=== PATIENT | male | born 1960 | race Native Hawaiian/Other Pacific Islander ===

== ENCOUNTER 2016-07-24 13:36 | Inpatient (IN) | payer SELFPAY ==
[~2016-07-24] VITALS: Ht 182.9 cm; Wt 165.9 kg
--- NOTE | ~2016-07-24 | EKG ---
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 : 1960 Requested By: Mike Garcia Order Number: [id number] MD: Jabari Arroyo Measurements Intervals [place] Rate: 80 P: [place]: QRS: 17 QRSD: 72 T: -9 QT: 399 QTc: 461 Interpretive Statements Atrial fibrillation RSR' in V1 or V2, probably normal variant Probable left ventricular hypertrophy Borderline T abnormalities, inferior leads No previous ECG available for comparison Electronically Signed On 07-24-2016 15:51:43 CLAY ARTIST by Jabari Arroyo [email or web address] <ELECTRONICALLY SIGNED> By: Jabari Arroyo MD 07/24/16 1551 142 142 Jabari Arroyo MD /JAMES
--- NOTE | ~2016-07-24 | 2DMMODE ---
[facility] [place] [address] 2 D/M-MODE ECHOCARDIOGRAM Name: CAMILLE TRACY MELQUIADES Room #: 214-P [facility] IN ..#: [id number] Admission: 07/24/16 Attend Phys: Lance Howard, Discharge: Date of : 62 Date of Service: 07/24/16 1458 Report #: [id number] THIS REPORT FOR: //name// Transthoracic Echocardiography Ordering physician: Lance Howard Referring physician: Lance Howard Recyclable Materials Collector: KADE Russell Indications/History: Atrial fibrillation with rapid ventricular response, Morbid obesity. BP: 127 / HR: Height: 72in Weight: 359.2lb 73 Study data: M-mode, complete 2D, complete spectral Doppler, and color Doppler. Location: Emergency department. Routine. Image quality was adequate. The study was technically limited due to poor acoustic window availability and body habitus. Intravenous contrast (Definity) was administered. 2D measurements Normal Normal LVID ED 41.6mm 36-57 IVS ED 15.8mm 6-11 LVID ES 35.2mm 23-40 LVPW ED 16mm 6-11 LA volume index 16-28 AoRoot diam ED 36mm 21-37 LVOT diameter 18-23 Findings: Left ventricle: The cavity size was normal. Wall thickness was increased in a pattern of moderate LVH. Systolic function was mildly reduced. The estimated ejection fraction was in the range of 45% to 50%. Mild diffuse hypokinesis. Right ventricle: The cavity size was normal. Systolic function was normal. Right atrium: The atrium was normal in size. Left atrium: The atrium was normal in size. Aortic valve: Trileaflet; mildly calcified leaflets. Doppler: There was no stenosis. No regurgitation. [facility] [address] [place] [address] 2 D/M-MODE ECHOCARDIOGRAM Name: CAMILLE TRACY Room #: 214-P ADM IN M.R.#: [id number] Admission: 07/24/16 Attend Phys: Lance Howard, Discharge: Date of : 62 Date of Service: 07/24/16 1458 Report #: [id number] Mitral valve: Structurally normal valve. Doppler: There was no evidence for stenosis. No regurgitation. Tricuspid valve: Structurally normal valve. Doppler: There was no evidence for stenosis. No regurgitation. Pulmonic valve: Structurally normal valve. Doppler: There was no evidence for stenosis. No regurgitation. Pericardium: There was no pericardial effusion. Aorta: Aortic root: The aortic root was normal in size. Pulmonary artery: Pressure could not be reliably determined due to minimal or absent tricuspid insufficiency jet, but pulmonary hypertension was not suggested. Diastolic function: The study was not technically sufficient to allow evaluation of LV diastolic dysfunction due to atrial fibrillation. Systemic veins: Inferior vena cava: Not visualized. Conclusions 1. Left ventricle: The cavity size was normal. Wall thickness was increased in a pattern of moderate LVH. Systolic function was mildly reduced. The estimated ejection fraction was in the range of 45% to 50%. Mild diffuse hypokinesis. 2. Aortic valve: Trileaflet; mildly calcified leaflets. 3. Mitral valve: Structurally normal valve. 4. Pulmonic valve: Structurally normal valve. 5. Tricuspid valve: Structurally normal valve. 6. Pulmonary arteries: Pressure could not be reliably determined due to minimal or absent tricuspid insufficiency jet, but pulmonary hypertension was not suggested. <ELECTRONICALLY SIGNED> By: Jay Sylvester MD 07/24/16 1651 1458 1651 Jay Sylvester MD /kemar
--- NOTE | ~2016-07-24 | EKG ---
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
--- NOTE | ~2016-07-24 | EKG ---
[address] [place] [address] ELECTROCARDIOGRAM REPORT Name: DEMARCUSCAMILLE Room #: 214-P DIS IN M.R.#: [id number] Admission: 07/24/16 Attend Phys: Lance Howard MD Discharge: 07/26/16 Date of : 62 Report #: [id number] THIS REPORT FOR: //name// [facility] Test Date: 2016-07-26 Test Time: 07:05:49 Pat Name: CAMILLE TRACY Department: Room: 214 P Gender: M Assistant Case Manager: SCOT : 1960 Requested By: Opal Morales Order Number: [id number] MD: Oni Hopkins Measurements Intervals [place] Rate: 59 P: [place]: QRS: 29 QRSD: 77 T: 100 QT: 433 QTc: 429 Interpretive Statements Atrial fibrillation RSR' in V1 or V2, probably normal variant Nonspecific T abnormalities, lateral leads Compared to ECG 07/24/2016 14:21:57 No significant changes Electronically Signed On 07-27-2016 14:13:39 INCIDENT HANDLER by Oni Hopkins [email or web address] <ELECTRONICALLY SIGNED> By: Oni Hopkisn MD, [facility] 07/27/16 1413 07 07 Oni Hopkins MD, [facility] /EPI
--- NOTE | ~2016-07-24 | H ---
[facility] [place] [address] HISTORY AND PHYSICAL Name: CAMILLE TRACY Room #: 214-P [facility] IN M.R.#: [id number] Admission: 07/24/16 Attend Phys: Lance Howard MD Discharge: 07/26/16 Date of : 62 Report #: [id number] THIS REPORT FOR: //name// CC: Lance Howard DATE OF SERVICE: 07/24/2016 CHIEF COMPLAINT: Rapid heartbeat and chest pain. HISTORY OF PRESENT ILLNESS: The patient is a 55-year-old male presented to the Emergency Department with an onset of left-sided chest pain and rapid heartbeat about 2 hours prior to admission. He denies any vomiting or diarrhea, just this sharp pain. He felt a big thump when it started. He has had PSVT in the past. He seems for that. He is on Coreg, clonidine. The morning he walked . 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 PAST MEDICAL HISTORY: Significant for: 1. PSVT. 2. Sleep apnea. 3. Hypothyroidism. 4. Hypertension. 5. Depression. 6. Crohn's colitis. He has had diverticulitis in the past. PAST SURGICAL HISTORY: He had a cholecystectomy in the past. MEDICATIONS: Include Cipro and Flagyl recently, senna b.i.d., hydrocodone p.r.n. pain, aspirin 325 a day, Synthroid 50 mcg a day, Coreg 25 mg b.i.d., citalopram 20 mg a day, clonidine 0.1 mg b.i.d. ALLERGIES: No known drug allergies. SOCIAL HISTORY: He is a nonsmoker, nondrinker, no recreational drugs. 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 REVIEW OF SYSTEMS: CONSTITUTIONAL: No fever or chills. HEENT: No headaches or visual changes. CHEST: Per above. GASTROINTESTINAL: No nausea, vomiting, diarrhea or constipation. GENITOURINARY: No complaints. EXTREMITIES: No complaints. PHYSICAL EXAMINATION: VITAL SIGNS: Blood pressure 157/105; pulse was 134, it is down to 85 now; [facility] [address] [place] [address] HISTORY AND PHYSICAL Name: CAMILLE TRACY MELQUIADES Room #: 214-P [facility] IN [facility]#: [id number] Admission: 07/24/16 Attend Phys: Lance Howard MD Discharge: 07/26/16 Date of : 62 Report #: [id number] respiratory rate was 20. His O2 sats were 98%. He was afebrile. GENERAL: The patient is awake and alert, in no acute distress. HEENT: Mucous membranes are moist. NECK: Supple. No adenopathy, thyromegaly or bruits. CHEST: Clear to auscultation bilaterally. CARDIOVASCULAR: Currently irregular with rate in the 80s. ABDOMEN: Soft, no masses. Bowel sounds are active. EXTREMITIES: No edema. Pulses are intact. LABORATORY DATA: EKG showed AFib with RVR, rate of 141. Sodium 144, potassium 4.1, chloride 107, bicarb 25, BUN 14, creatinine 0.9, glucose 102, mag is 1.8, AST 37, ALT 40, alkaline phosphatase 63. Troponin 0.3. BNP 260, TSH is pending. INR is pending. WBC 7.9, hemoglobin 17.9, hematocrit 53.3, platelet count 209, 53 segs, 21 lymphs. Chest x-ray shows cardiomegaly with no heart failure. ASSESSMENT: Atrial fibrillation with rapid ventricular response with a slight bump in troponin, most likely due to strain. He was started on a Cardizem drip. We will continue that. We will continue the Coreg. Consult Cardiology. He will need an echocardiogram, start on Xarelto 20 mg a day. <ELECTRONICALLY SIGNED> By: Lance Howard MD 07/28/16 1632 1441 1550 Lance Howard MD /nt
[~2016-07-24 13:36] MED LIST: ASPIRIN325 PO; CARVEDILOL25 MG PO; CELEXA20 MG PO; CIPRO500 M1 PO; CLONIDINE0.1 PO; FLAGYL500 MG PO; HYDROCODONE-AP1 EAC6 PO; KEFLEX500 MG PO; LEVOTHYROXINE0.05 MG PO; PEPCID40 MG PO; SENOKOT-S1 TA1 PO
[2016-07-24 13:39] VITALS: BP 157/105
[2016-07-24 14:04] LABS: BASOPHILS 0.9 % (0.0-2.0); EOSINOPHILS 2.7 % (0.0-3.0); HEMATOCRIT 52.3 % (42.0-52.0); HEMOGLOBIN 17.9 gm/dL (14.0-18.0); LYMPHOCYTES 21.3 % (24.0-44.0); MCH 30.5 pg (26.0-34.0); MCHC 34.3 % (28.0-37.0); MONOCYTES 11.2 % (1.0-8.0); PLATELET COUNT 209 thou/uL (150-400); POLYS 63.9 % (36.0-66.0); RBC 5.87 mil/uL (4.50-6.00); RDW 13.6 % (10.5-14.5); WBC 7.9 thou/uL (4.0-11.0)
[2016-07-24 14:07] LABS: MANUAL DIFF NO
[2016-07-24 14:14] LABS: CALCIUM 8.7 mg/dL (8.5-10.1); CREATININE 0.9 mg/dL (0.6-1.3); POTASSIUM 4.1 mmol/L (3.5-5.1)
[2016-07-24 14:29] LABS: ALBUMIN 3.7 g/dL (3.4-5.0); MAGNESIUM 1.8 mg/dL (1.8-2.4); TOTAL BILIRUBIN 1.4 mg/dL (<0.1-1.0); TOTAL PROTEIN 7.7 g/dL (6.4-8.2); TROPONIN-I 0.3 ng/mL (<0.04-0.07)
[2016-07-24 14:36] LABS: INR 1.2
[2016-07-24 15:57] VITALS: BP 147/88
[2016-07-24 19:48] VITALS: BP 134/85
[2016-07-25] VITALS (7 sets, daily range): BP systolic 119–141; BP diastolic 75–96
[2016-07-25] MEDS ORDERED: XARELTO20 MG PO (16:34)
[2016-07-26 04:49] VITALS: BP 151/90
[2016-07-26 08:16] VITALS: BP 158/99
[2016-07-26 08:48] LABS: ALBUMIN 3.6 g/dL (3.4-5.0); ALKALINE PHOSPHATASE 58 U/L (46-116); ANION GAP 15 mmol/L (7-16); BUN 18 mg/dL (7-18); CALCIUM 8.8 mg/dL (8.5-10.1); CHLORIDE 109 mmol/L (98-107); CO2 22 mmol/L (21-32); GLUCOSE 116 mg/dL (70-99); SGOT 44 U/L (15-37); SGPT 55 U/L (30-65); SODIUM 146 mmol/L (136-145); TOTAL BILIRUBIN 1.3 mg/dL (<0.1-1.0); TOTAL PROTEIN 7.2 g/dL (6.4-8.2)
[2016-07-26 09:11] LABS: CHOLESTEROL 159 mg/dL (<200); HDL CHOLESTEROL 31 mg/dL (>40); LDL CHOLESTEROL 86 mg/dL (<100); TC:HDL 5.1 Ratio (Not establshd); TRIGLYCERIDE 213 mg/dL (<150); VLDL 43 mg/dL (<40)
[2016-07-26] MEDS ORDERED: CARDIZEM CD180 MG PO (12:00)
[2016-07-26 12:38] VITALS: BP 158/99
[2016-07-26 13:07] VITALS: BP 158/99
== END 2016-07-26 13:02 | disposition home or self-care (01) | DRG 309 ==
LOC: ER 13:36 → 2N 14:21 → EROBS 14:21 → 2N 15:57
PROVIDERS: Emergency Medicine; Nurse Practitioner Gerontology
DX: I48.91 Unspecified atrial fibrillation (principal); Z68.42 Body mass index [BMI] 45.0-49.9, adult; I10 Essential (primary) hypertension; F32.9 Major depressive disorder, single episode, unspecified; E03.9 Hypothyroidism, unspecified; E66.9 Obesity, unspecified; R79.89 Other specified abnormal findings of blood chemistry; Z90.49 Acquired absence of other specified parts of digestive tract; Z79.82 Long term (current) use of aspirin; Z79.899 Other long term (current) drug therapy; Z79.01 Long term (current) use of anticoagulants
CPT/HCPCS: 10194

== ENCOUNTER → 2018-01-14 | Outpatient (CLI) | payer OTHER ==
[~2018-01-14] MED LIST changes: +CARDIZEM CD180 MG PO; +DIOVAN320 MG PO; +IMDUR 60 MG TAB60 M1 PO; +XARELTO20 MG PO
--- NOTE | ~2018-01-14 | CATHLAB ---
[facility] [place] [address] INVASIVE PROCEDURE REPORT Name: TRACYCAMILLE Room #: REG Kris#: [id number] Admission: 01/14/18 Attend Phys: Randall Chaves, Discharge: Date of : 62 Date of Service: 01/14/18 191 Report #: [id number] THIS REPORT FOR: //name// APPROVED REPORT Study performed: 01/14/2018 09:04:05 Patient Details Patient Status: Out-Patient Room #: The patient is a 57 year-old male Event Personnel Randall Chaves Stock Broker, Huber Real RN, Pamela Kurtz RTR, Mat Dawkins Christine RTR Monitor, Riki Valdez Monitor Procedures Performed Left Heart Cath w/or w/o Coronaries [id number] [facility] Indication Chest pain Procedure Narrative The Right Groin^ was infiltrated with 1% Lidocaine subcutaneous anesthesia. A PINNACLE 6FR Sheath #[id number] sheath was inserted into the RFA^. Coronary angiography was performed using coronary diagnostic catheters. The right coronary system was accessed and visualized with a JR4 catheter. The left coronary system was accessed and visualized with a JL4 catheter. The left ventricle was accessed and visualized with a PIGTAIL catheter. Left ventricular/Aortic Valve gradient assessed via catheter pullback. Left ventriculogram was performed in 30 degree projection. Closure device was deployed with a 6 Fr MYNXGRIP 6/7F #[id number]. The patient tolerated the procedure well and there were no complications associated with the procedure. There was no hematoma. Intraoperative Conscious Sedation Sedation start time: 9.31 Case end Time: 9.44 Fentanyl 75 mcg Versed 1.5 mg Fluoro Time: 1.55 minutes Dose: DAP 8837.30 cGycm2 1090 mGy Contrast Type and Amount: Omnipaque 90 ml [facility] [place] [address] INVASIVE PROCEDURE REPORT Name: CAMILLE TRACY Room #: [facility] Kris#: [id number] Admission: 01/14/18 Attend Phys: Randall Chaves, Discharge: Date of : 62 Date of Service: 01/14/18 1913 Report #: [id number] Hemodynamics The aortic pressure is 182/109 mmHg with a mean of 135 mmHg. The left ventricular pressure is 181/21 mmHg with a mean of mmHg. The left ventricular end diastolic pressure is 29 mmHg. There was no gradient across the aortic valve upon pullback. Pullback from the left ventricle to the aorta revealed no gradient across the aortic valve. Conclusion #1 normal left ventricular size and systolic function EF 55-60% no definite wall motion abnormality #2 left main with mild distal narrowing 20% mildly calcified giving rise to LAD and circumflex #3 LAD with mild diffuse disease which extends around the apex moderate size diagonal system #4 small ramus intermedius branch with mild disease #5 circumflex OM is large but technically nondominant distal OM branches are extensive with mild disease #6 dominant right with an eccentric 40-50% proximal lesion and if 50% PDA proximal lesion diffuse disease but no occlusive disease #7 bilateral selective renal artery injections have mild irregularities in the proximal segments no occlusive disease n #8 Recommendations and plan: Continue aggressive risk factor modification no indication for coronary intervention. Aggressive blood pressure management. <ELECTRONICALLY SIGNED> By: Randall Chaves MD, FACC 01/14/181912 12 12 Randall Chaves MD, FACC /INF
--- NOTE | ~2018-01-14 | EKG ---
[place] [address] [address] [facility] [place] [address] ELECTROCARDIOGRAM REPORT Name: CAMILLE TRACY MELQUIADES [id number] Admission: 01/14/18 Attend Phys: Randall Chaves MD, Discharge: Date of : 62 Report #: [id number] THIS REPORT FOR: //name// 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 Screen Measurer And Trimmer: : 1960 Requested By: Randall Chaves Order Number: [id number] MD: Oni Hopkins Measurements Intervals [place] Rate: 51 P: 38 OK: 263 QRS: 30 QRSD: 78 T: 24 QT: 488 QTc: 450 Interpretive Statements Sinus rhythm Prolonged OK interval Minimal ST elevation, anterior leads Baseline wander in lead(s) V3 Compared to ECG 07/26/2016 07:05:49 Atrial fibrillation no longer present Electronically Signed On 01-14-2018 8:11:29 CDT by Oni Hopkins [email or web address] <ELECTRONICALLY SIGNED> By: Oni Hopkins MD, [facility] 01/14/18810 5 5 Oni Hopkins MD, [facility] /EPI
[2018-01-14 07:02] VITALS: BP 157/78
[2018-01-14 07:29] LABS: HEMATOCRIT 46.2 % (42.0-52.0); HEMOGLOBIN 15.8 gm/dL (14.0-18.0); MCH 31.2 pg (26.0-34.0); MCHC 34.1 g/dL (28.0-37.0); MCV 91.3 fL (80.0-100.0); RBC 5.06 mil/uL (4.50-6.00); RDW 13.2 % (10.5-14.5); WBC 7.5 thou/uL (4.0-11.0)
[2018-01-14 07:38] LABS: CALCIUM 8.8 mg/dL (8.5-10.1); CREATININE 0.9 mg/dL (0.7-1.3); POTASSIUM 3.9 mmol/L (3.5-5.1)
== END | disposition home or self-care (01) ==
LOC: CATH 01-13 07:44
PROVIDERS: Internal Medicine Cardiovascular Disease
DX: I25.10 Atherosclerotic heart disease of native coronary artery without angina pectoris (principal); I10 Essential (primary) hypertension; I48.91 Unspecified atrial fibrillation; E78.5 Hyperlipidemia, unspecified; E03.9 Hypothyroidism, unspecified; F32.9 Major depressive disorder, single episode, unspecified; G47.30 Sleep apnea, unspecified; I49.9 Cardiac arrhythmia, unspecified; E66.9 Obesity, unspecified; Z90.49 Acquired absence of other specified parts of digestive tract; Z87.19 Personal history of other diseases of the digestive system; Z87.891 Personal history of nicotine dependence; Z79.82 Long term (current) use of aspirin; Z79.899 Other long term (current) drug therapy; Z79.01 Long term (current) use of anticoagulants